=== PATIENT | female | born 1995 | race African-American/Black ===

== ENCOUNTER 2020-08-09 09:53 | Emergency (ER) | payer OTHER, SELFPAY ==
[2020-08-09 09:57] VITALS: BP 147/107; PULSE 76; RESP 20; TEMP 35.8; O2SAT 100
--- NOTE | 2020-08-09 10:53 | ED.BURNSMOKE ---
HPI - Burn/Smoke Inhalation General Chief complaint: Burn/Smoke Inhalation <Tamie Armstrong PA-C - Last Filed: 08/09/20 11:28> Stated complaint: I burned myself real bad <STEPHANY Siegel Last Filed: 08/09/20 11:28> Time Seen by Provider: 08/09/20 10:11 <STEPHANY Siegel Last Filed: 08/09/20 11:28> Source: patient <STEPHANY Siegel Last Filed: 08/09/20 11:28> Mode of arrival: ambulatory <STEPHANY Siegel Last Filed: 08/09/20 11:28> Limitations: no limitations <STEPHANY Siegel Last Filed: 08/09/20 11:28> History of Present Illness HPI Narrative: This is a 24-year-old female that presents the emergency department for burn sustained just prior to arrival. Reports she was removing a container with a coffee grounds from the siene maker. Reports some hot water splashed her left wrist. Reports of burn to the area with blistering. Reports she is up-to-date on tetanus. Denies decreased range of motion or numbness. <STEPHANY Siegel Last Filed: 08/09/20 11:28> Related Data Home medications: Home Medications Medication Instructions Recorded Confirmed No Home Medications 08/09/20 08/09/20 <STEPHANY Siegel Last Filed: 08/09/20 11:28> Allergies/adverse reactions: Allergies Allergy/AdvReac Type Severity Reaction Status Date / Time clindamycin Allergy Mild Hives / Verified 08/18/19 19:46 Red Face <STEPHANY Siegel Last Filed: 08/09/20 11:28> Review of Systems Review of Systems: Narrative: CONSTITUTIONAL: Denies fever SKIN: Reports burn <STEPHANY Siegel Last Filed: 08/09/20 11:28> All systems reviewed & are unremarkable except as noted in HPI and below <STEPHANY Siegel Last Filed: 12/24/20 11:28> PMFSH Past Medical History Medical History: Medical History (Updated 08/09/20 @ 11:27 by Tamie Armstrong PA-C) History of gallbladder disease PCOS (polycystic ovarian syndrome) <Tamie Armstrong PA-C - Last Filed: 08/09/20 11:28> Surgical History Surgical History: Surgical History (Updated 08/18/19 @ 21:42 by Tommy Gavin) History of cholecystectomy <Tamie Armstrong PA-C - Last Filed: 08/09/20 11:28> Social History Social History: Social History (Updated 08/18/19 @ 21:43 by Tommy Gavin) Smoking status: Never smoker Gender identity (if verbalized by the patient): Female <Tamie Armstrong PA-C - Last Filed: 08/09/20 11:28> Exam Narrative: Exam Narrative: GENERAL: Well-appearing, well-nourished, and in no acute distress. HEAD: Normocephalic, atraumatic. EYES: EOMI. EXTREMITIES: Normal range of motion. No edema. Normal radial pulses. Normal sensation. Left wrist dorsal surface with small area of redness with two 1.5cm blisters noted SKIN: Warm, dry, no rash. NEURO: No focal deficits. Alert and oriented x3. PSYCH: Normal mood and affect <Tamie Armstrong PA-C - Last Filed: 08/09/20 11:28> Course Vital Signs Vital signs: Vital Signs Temperature 96.4 F L 08/09/20 09:57 Pulse Rate 76 08/09/20 09:57 Respiratory Rate 20 08/09/20 09:57 Blood Pressure 147/107 H 08/09/20 09:57 Pulse Oximetry 100 08/09/20 09:57 Temperature 96.4 F L 08/09/20 09:57 Pulse Rate 76 08/09/20 09:57 Respiratory Rate 20 08/09/20 09:57 Blood Pressure 147/107 H 08/09/20 09:57 Pulse Oximetry 100 08/09/20 09:57 <Tamie Armstrong PA-C - Last Filed: 08/09/20 11:28> Vital Signs Temperature 96.4 F L 08/09/20 09:57 Pulse Rate 76 08/09/20 09:57 Respiratory Rate 20 1224/20 09:57 Blood Pressure 147/107 H 08/09/20 09:57 Pulse Oximetry 100 08/09/20 09:57 Temperature 96.4 F L 08/09/20 09:57 Pulse Rate 76 08/09/20 09:57 Respiratory Rate 20 08/09/20 09:57 Blood Pressure 147/107 H 08/09/20 09:57 Pulse Oximetry 100 08/09/20 09:57 <Latricia Lang MD - Last Filed: 08/09/20 18:53> MDM - Burn/Smoke Inhalation M
[2020-08-09] MEDS: IBUPROFEN 600 MG TABLET PO (11:18)
[2020-08-09] MEDS: SILVER SULFADIAZINE 1% CR 50 GM JAR (*BKC) 1 APPLIC TOPICAL (11:19)
== END 2020-08-09 11:45 | disposition home or self-care (01) ==
PROVIDERS: Emergency Provider General Practice
DX: T23.272A Burn of second degree of left wrist, initial encounter (principal); T31.0 Burns involving less than 10% of body surface; E28.2 Polycystic ovarian syndrome; X11.8XXA Contact with other hot tap-water, initial encounter
CPT/HCPCS: 16000; 16020; 99283; A9270